=== PATIENT | male | born 1975 | race African-American/Black ===

== ENCOUNTER 2019-05-23 09:46 | Inpatient (IN) | payer MEDICARE, MEDICAID ==
[~2019-05-23] VITALS: Ht 177.8 cm; Wt 182.8 kg
[2019-05-23] MEDS ORDERED: NITROGLYCERIN OINT 1GM/INCH UDPKT TD ONE (10:30)
[2019-05-23] MEDS ORDERED: FUROSEMIDE 40MG/4ML VIAL IV ONE (10:30)
[2019-05-23] MEDS ORDERED: ASPIRIN 81MG TABLET PO ONE (10:30)
[2019-05-23 11:04] LABS: CHLORIDE 106 mEq/L (98-107)
[2019-05-23 11:05] LABS: HEMATOCRIT. 43.6 % (42.0-52.0); MEAN CORPUSCULAR HEMOGLOBIN 27.1 pg (28.0-32.0); MEAN CORPUSCULAR VOLUME 84.5 fL (80.0-94.0); PLATELET 156 x1000/uL (130-400); RED BLOOD CELL COUNT 5.16 mill/uL (4.7-6.1); RED CELL DISTRIBUTION WIDTH 17.7 % (11.6-14.6)
[2019-05-23 11:06] LABS: INR 1.2; PARTIAL THROMBOPLASTIN TIME 41.8 sec (23.4-31.0); PROTHROMBIN TIME 12.7 sec (9.6-11.0)
[2019-05-23 11:18] LABS: BG BILEVEL POS AIRWAY PRESSURE 15/5; BG CARBOXYHEMOGLOBIN 1.9 % (0.5-1.5); BG DEOXYHEMOGLOBIN 0.5 % (0.0-5.0); BG FRACTION INSPIRED OXYGEN 100; BG HCO3 ACT 36.6 mmol/L (22.0-26.0); BG METHEMOGLOBIN 0.3 % (0.0-1.5); BG OXYGEN SATURATION 99.5 % (92.0-98.5); BG OXYHEMOGLOBIN 97.3 % (94.0-97.0); BG PCO2 85.2 mmHg (35.0-45.0); BG PH 7.251 (7.350-7.450); BG PO2 250.4 mmHg (75.0-100.0); BG SAMPLE SITE RIGHT RADIAL; BG TOTAL HEMOGLOBIN 14.6 g/dL (12.0-18.0); BG VENT MODE BNCPAP; BG VENT RATE 14 set
[2019-05-23 11:56] LABS: NUCLEATED RED BLOOD CELLS 1 /100 WBC; PLATELET ESTIMATE NORMAL
[2019-05-23] MEDS ORDERED: LIDOCAINE HCL 1% 20ML VIAL (Pyxis) INJ ONE (13:11)
[2019-05-23] MEDS ORDERED: IPRATROPIUM/ALBUTEROL 0.5-3(2.5)MG/3ML NEB NEB PRN (13:15)
[2019-05-23] MEDS ORDERED: ACETAMINOPHEN 325MG TABLET PO PRN (13:15)
[2019-05-23] MEDS ORDERED: GUAIFENESIN 200MG/10ML SUGAR FREE UDC PO PRN (13:15)
[2019-05-23] MEDS ORDERED: LORAZEPAM 0.5MG TABLET PO PRN (13:15)
[2019-05-23] MEDS ORDERED: HYDROCODONE/ACETAMINOPHEN 5/325MG TABLET PO PRN (13:15)
[2019-05-23] MEDS ORDERED: DOCUSATE SODIUM 100MG CAPSULE PO PRN (13:15)
[2019-05-23] MEDS ORDERED: ONDANSETRON HCL 4MG/2ML INJ IV PRN (13:15)
[2019-05-23] MEDS ORDERED: ACETAMINOPHEN 650MG SUPP PR PRN (13:15)
[2019-05-23] MEDS ORDERED: NA PHOS,M-B/NA PHOS,DI-BA ENEMA 118ML PR PRN (13:15)
[2019-05-23] MEDS ORDERED: DIPHENHYDRAMINE 50MG/ML VIAL IV PRN (13:15)
[2019-05-23] MEDS ORDERED: MAGNESIUM/ALUMINUM HYDROXIDE/SIMETHICONE 30ML UDC PO PRN (13:15)
[2019-05-23 14:49] LABS: BG BASE EXCESS 4.3 mmol/L (-2.0-2.0); BG BILEVEL POS AIRWAY PRESSURE 18/5; BG CARBOXYHEMOGLOBIN 1.6 % (0.5-1.5); BG DEOXYHEMOGLOBIN 0.4 % (0.0-5.0); BG FRACTION INSPIRED OXYGEN 100; BG HCO3 ACT 34.8 mmol/L (22.0-26.0); BG METHEMOGLOBIN 0.3 % (0.0-1.5); BG OXYGEN SATURATION 99.6 % (92.0-98.5); BG OXYHEMOGLOBIN 97.7 % (94.0-97.0); BG PCO2 83.1 mmHg (35.0-45.0); BG PO2 331.7 mmHg (75.0-100.0); BG SAMPLE SITE RIGHT RADIAL; BG TOTAL HEMOGLOBIN 14.8 g/dL (12.0-18.0); BG VENT MODE MASK - BIPAP; BG VENT RATE 20 set
[2019-05-23] MEDS ORDERED: METHYLPREDNISOLONE SOD SUCC 40 MG/ML VIAL IV NR (15:45)
[2019-05-23] MEDS ORDERED: PIPERACILLIN/TAZ 3.375G PREMIX 50 ML IV NR (15:45)
[2019-05-23 15:53] LABS: CREATINE KINASE MB FRACTION 1.4 ng/mL (0.5-3.6)
[2019-05-23] MEDS: MONTELUKAST SODIUM 10MG TABLET PO SCH (17:00)
[2019-05-23 18:19] VITALS: BP 148/88
[2019-05-23] MEDS: FUROSEMIDE 40MG/4ML VIAL IV SCH (18:47)
[2019-05-23 18:53] VITALS: BP 143/69
[2019-05-23 20:20] VITALS: BP 158/99
[2019-05-23] MEDS: METHYLPREDNISOLONE SOD SUCC 40 MG/ML VIAL IV SCH (21:44)
[2019-05-23] MEDS: FAMOTIDINE 20MG/2ML VIAL IV SCH (21:44)
[2019-05-23] MEDS: PIPERACILLIN SODIUM/TAZOBACTAM 4.5 G in DEXT 5% WATER 100 ML IV SCH (21:45)
[2019-05-23] MEDS: ENOXAPARIN 40MG/0.4ML SYR SUBCUT SCH (21:45)
[2019-05-23 22:00] VITALS: BP 174/98
[2019-05-23] MEDS ORDERED: PIPERACILLIN/TAZOBACTAM 3.375 G in DEXT 5% WATER 100 ML IV SCH (22:00)
[2019-05-23] MEDS: CLONIDINE 0.1MG TABLET PO PRN (23:15)
[2019-05-24] VITALS (27 sets, daily range): BP systolic 122–170; BP diastolic 65–115
[2019-05-24] MEDS: PIPERACILLIN SODIUM/TAZOBACTAM 4.5 G in DEXT 5% WATER 100 ML IV SCH ×4 (00:08→17:31)
[2019-05-24 06:01] LABS: HEMATOCRIT. 42.8 % (42.0-52.0); HEMOGLOBIN. 13.4 g/dL (14.0-18.0); MEAN CORPUSCULAR VOLUME 86.2 fL (80.0-94.0); MEAN PLATELET VOLUME 8.3 fl (7.4-10.4); PLATELET 167 x1000/uL (130-400); RED BLOOD CELL COUNT 4.97 mill/uL (4.7-6.1); RED CELL DISTRIBUTION WIDTH 18.1 % (11.6-14.6)
[2019-05-24 06:15] LABS: CHLORIDE 105 mEq/L (98-107)
[2019-05-24] MEDS: FUROSEMIDE 40MG/4ML VIAL IV SCH ×2 (06:23→17:23)
[2019-05-24] MEDS: METHYLPREDNISOLONE SOD SUCC 40 MG/ML VIAL IV SCH ×3 (06:23→21:07)
[2019-05-24 06:34] LABS: LDL CHOLESTEROL 130 mg/dL (5-100)
[2019-05-24 06:35] LABS: CREATINE KINASE MB FRACTION 1.2 ng/mL (0.5-3.6); HDL CHOLESTEROL 40 mg/dL (40-59); T4 FREE 1.17 ng/dL (0.76-1.46)
[2019-05-24 06:39] LABS: CREATINE KINASE 29 IU/L (39-308)
[2019-05-24] MEDS: FAMOTIDINE 20MG/2ML VIAL IV SCH ×2 (08:41→21:05)
[2019-05-24] MEDS: LORATADINE 10MG TABLET PO SCH (08:41)
[2019-05-24] MEDS: ASPIRIN 81MG TABLET PO SCH (08:41)
[2019-05-24] MEDS: ENOXAPARIN 40MG/0.4ML SYR SUBCUT SCH ×2 (08:41→21:06)
[2019-05-24 08:46] LABS: BG BASE EXCESS -0.3 mmol/L (-2.0-2.0); BG BILEVEL POS AIRWAY PRESSURE 18/5; BG CARBOXYHEMOGLOBIN 1.3 % (0.5-1.5); BG DEOXYHEMOGLOBIN 2.1 % (0.0-5.0); BG FRACTION INSPIRED OXYGEN 100; BG HCO3 ACT 31.5 mmol/L (22.0-26.0); BG METHEMOGLOBIN 0.1 % (0.0-1.5); BG OXYGEN SATURATION 97.9 % (92.0-98.5); BG OXYHEMOGLOBIN 96.5 % (94.0-97.0); BG PCO2 92.8 mmHg (35.0-45.0); BG PH 7.148 (7.350-7.450); BG SAMPLE SITE RIGHT RADIAL; BG TOTAL HEMOGLOBIN 14.2 g/dL (12.0-18.0); BG VENT MODE MASK - BIPAP; BG VENT RATE 20 set
[2019-05-24 11:16] LABS: BG BASE EXCESS 1.9 mmol/L (-2.0-2.0); BG BILEVEL POS AIRWAY PRESSURE ST=20/5; BG CARBOXYHEMOGLOBIN 0.9 % (0.5-1.5); BG DEOXYHEMOGLOBIN 2.4 % (0.0-5.0); BG FRACTION INSPIRED OXYGEN 100; BG HCO3 ACT 32.9 mmol/L (22.0-26.0); BG METHEMOGLOBIN 0.1 % (0.0-1.5); BG OXYGEN SATURATION 97.6 % (92.0-98.5); BG OXYHEMOGLOBIN 96.6 % (94.0-97.0); BG PCO2 87.8 mmHg (35.0-45.0); BG PH 7.192 (7.350-7.450); BG PO2 106.3 mmHg (75.0-100.0); BG PRESSURE SUPPORT 15; BG SAMPLE SITE RIGHT RADIAL; BG VENT MODE MASK - BIPAP; BG VENT RATE 22 set
[2019-05-24 13:18] LABS: NUCLEATED RED BLOOD CELLS 1 /100 WBC; PLATELET ESTIMATE NORMAL
[2019-05-24] MEDS: IPRATROPIUM/ALBUTEROL 0.5-3(2.5)MG/3ML NEB NEB SCH ×2 (15:37→20:21)
[2019-05-24 16:52] LABS: BG BASE EXCESS 3.5 mmol/L (-2.0-2.0); BG BILEVEL POS AIRWAY PRESSURE ST=20/5; BG CARBOXYHEMOGLOBIN 1.1 % (0.5-1.5); BG DEOXYHEMOGLOBIN 2.9 % (0.0-5.0); BG FRACTION INSPIRED OXYGEN 100; BG HCO3 ACT 33.8 mmol/L (22.0-26.0); BG METHEMOGLOBIN 0.2 % (0.0-1.5); BG OXYGEN SATURATION 97.1 % (92.0-98.5); BG OXYHEMOGLOBIN 95.8 % (94.0-97.0); BG PCO2 83.3 mmHg (35.0-45.0); BG PH 7.226 (7.350-7.450); BG PRESSURE SUPPORT 15; BG SAMPLE SITE RIGHT RADIAL; BG TOTAL HEMOGLOBIN 13.6 g/dL (12.0-18.0); BG VENT MODE MASK - BIPAP; BG VENT RATE 22 set
[2019-05-24] MEDS: MONTELUKAST SODIUM 10MG TABLET PO SCH (17:23)
[2019-05-24] MEDS: CLONIDINE 0.1MG TABLET PO PRN (17:44)
[2019-05-24] MEDS: BUDESONIDE 0.5MG/2ML NEB HHN SCH (20:22)
[2019-05-25] VITALS (28 sets, daily range): BP systolic 133–184; BP diastolic 76–138
[2019-05-25] MEDS: IPRATROPIUM/ALBUTEROL 0.5-3(2.5)MG/3ML NEB NEB SCH ×4 (00:43→21:03)
[2019-05-25] MEDS: PIPERACILLIN SODIUM/TAZOBACTAM 4.5 G in DEXT 5% WATER 100 ML IV SCH ×4 (01:14→18:13)
[2019-05-25 04:55] LABS: HEMATOCRIT 38.5 % (42.0-52.0); HEMOGLOBIN 12.1 g/dL (14.0-18.0); MEAN CORPUSCULAR HEMOGLOBIN 26.9 pg (28.0-32.0); MEAN CORPUSCULAR VOLUME 85.5 fL (80.0-94.0); PLATELET 125 x1000/uL (130-400); RED BLOOD CELL COUNT 4.51 mill/uL (4.7-6.1); RED CELL DISTRIBUTION WIDTH 17.6 % (11.6-14.6)
[2019-05-25 05:06] LABS: CHLORIDE 106 mEq/L (98-107)
[2019-05-25] MEDS: METHYLPREDNISOLONE SOD SUCC 40 MG/ML VIAL IV SCH ×3 (05:48→21:24)
[2019-05-25] MEDS: FUROSEMIDE 40MG/4ML VIAL IV SCH ×2 (09:28→16:15)
[2019-05-25] MEDS: FAMOTIDINE 20MG/2ML VIAL IV SCH ×2 (09:28→21:25)
[2019-05-25] MEDS: LORATADINE 10MG TABLET PO SCH (09:31)
[2019-05-25] MEDS: ASPIRIN 81MG TABLET PO SCH (09:31)
[2019-05-25] MEDS: ENOXAPARIN 40MG/0.4ML SYR SUBCUT SCH ×2 (09:32→21:25)
[2019-05-25 09:34] LABS: BG BILEVEL POS AIRWAY PRESSURE 20/5; BG CARBOXYHEMOGLOBIN 1.1 % (0.5-1.5); BG DEOXYHEMOGLOBIN 0.9 % (0.0-5.0); BG FRACTION INSPIRED OXYGEN 100; BG HCO3 ACT 35.6 mmol/L (22.0-26.0); BG METHEMOGLOBIN 0.2 % (0.0-1.5); BG OXYGEN SATURATION 99.1 % (92.0-98.5); BG OXYHEMOGLOBIN 97.8 % (94.0-97.0); BG PCO2 71.3 mmHg (35.0-45.0); BG PH 7.316 (7.350-7.450); BG PO2 167.1 mmHg (75.0-100.0); BG SAMPLE SITE RIGHT RADIAL; BG TOTAL HEMOGLOBIN 13.2 g/dL (12.0-18.0); BG VENT MODE MASK - BIPAP; BG VENT RATE 22 set
[2019-05-25] MEDS: BUDESONIDE 0.5MG/2ML NEB HHN SCH ×2 (09:42→21:03)
[2019-05-25] MEDS: CLONIDINE 0.1MG TABLET PO PRN ×2 (10:14→16:15)
[2019-05-25] MEDS: AMLODIPINE 10MG TABLET PO SCH (13:46)
[2019-05-25] MEDS: HYDRALAZINE HCL 50MG TABLET PO SCH ×2 (13:46→21:25)
[2019-05-25 14:24] LABS: CLARITY URINE TURBID (CLEAR); COLOR URINE ORANGE (YELLOW); KETONES URINE NEGATIVE (NEGATIVE); LEUKOCYTE ESTERASE URINE 1+ (NEGATIVE); NITRITE URINE NEGATIVE (NEGATIVE); OCCULT BLOOD URINE 3+ (NEGATIVE); PROTEIN URINE 2+ (NEGATIVE); SPECIFIC GRAVITY URINE 1.012 (1.005-1.030)
[2019-05-25] MEDS: MONTELUKAST SODIUM 10MG TABLET PO SCH (16:16)
[2019-05-25] MEDS: HYDRALAZINE 20MG/ML VIAL IV PRN (18:19)
[2019-05-25] MEDS: CLONIDINE 0.1MG TABLET PO SCH (21:26)
[2019-05-26] VITALS (13 sets, daily range): BP systolic 22–193; BP diastolic 5–118
[2019-05-26] MEDS: PIPERACILLIN SODIUM/TAZOBACTAM 4.5 G in DEXT 5% WATER 100 ML IV SCH ×5 (00:20→23:24)
[2019-05-26] MEDS: HYDRALAZINE 20MG/ML VIAL IV PRN ×3 (00:25→23:50)
[2019-05-26] MEDS: IPRATROPIUM/ALBUTEROL 0.5-3(2.5)MG/3ML NEB NEB SCH ×4 (00:43→20:35)
[2019-05-26] MEDS: CLONIDINE 0.1MG TABLET PO PRN (02:56)
[2019-05-26] MEDS: CLONIDINE 0.1MG TABLET PO SCH ×3 (05:35→22:03)
[2019-05-26] MEDS: HYDRALAZINE HCL 50MG TABLET PO SCH ×3 (05:35→22:03)
[2019-05-26 08:03] LABS: HEMATOCRIT 37.7 % (42.0-52.0); HEMOGLOBIN 11.8 g/dL (14.0-18.0); MEAN CORPUSCULAR HEMOGLOBIN 26.7 pg (28.0-32.0); MEAN CORPUSCULAR VOLUME 85.2 fL (80.0-94.0); PLATELET 122 x1000/uL (130-400); RED BLOOD CELL COUNT 4.42 mill/uL (4.7-6.1); RED CELL DISTRIBUTION WIDTH 17.7 % (11.6-14.6)
[2019-05-26] MEDS: FAMOTIDINE 20MG/2ML VIAL IV SCH ×2 (09:00→22:03)
[2019-05-26] MEDS: LORATADINE 10MG TABLET PO SCH (09:00)
[2019-05-26] MEDS: ENOXAPARIN 40MG/0.4ML SYR SUBCUT SCH ×2 (09:00→22:04)
[2019-05-26] MEDS: ASPIRIN 81MG TABLET PO SCH (09:01)
[2019-05-26] MEDS: FUROSEMIDE 40MG/4ML VIAL IV SCH ×2 (09:03→18:03)
[2019-05-26] MEDS: AMLODIPINE 10MG TABLET PO SCH (09:04)
[2019-05-26] MEDS: BUDESONIDE 0.5MG/2ML NEB HHN SCH ×2 (09:18→20:35)
[2019-05-26] MEDS: METHYLPREDNISOLONE SOD SUCC 40 MG/ML VIAL IV SCH ×2 (10:24→22:04)
[2019-05-26] MEDS: MONTELUKAST SODIUM 10MG TABLET PO SCH (17:00)
[2019-05-27] VITALS (12 sets, daily range): BP systolic 154–174; BP diastolic 68–107
[2019-05-27] MEDS: IPRATROPIUM/ALBUTEROL 0.5-3(2.5)MG/3ML NEB NEB SCH ×4 (01:52→20:45)
[2019-05-27] MEDS: PIPERACILLIN SODIUM/TAZOBACTAM 4.5 G in DEXT 5% WATER 100 ML IV SCH ×4 (05:29→23:22)
[2019-05-27] MEDS: CLONIDINE 0.1MG TABLET PO SCH ×3 (05:30→20:50)
[2019-05-27] MEDS: HYDRALAZINE HCL 50MG TABLET PO SCH (05:31)
[2019-05-27] MEDS: FUROSEMIDE 40MG/4ML VIAL IV SCH ×2 (06:18→17:51)
[2019-05-27] MEDS: LORATADINE 10MG TABLET PO SCH (08:16)
[2019-05-27] MEDS: ASPIRIN 81MG TABLET PO SCH (08:17)
[2019-05-27] MEDS: AMLODIPINE 10MG TABLET PO SCH (08:17)
[2019-05-27] MEDS: ENOXAPARIN 40MG/0.4ML SYR SUBCUT SCH ×2 (08:19→20:49)
[2019-05-27] MEDS: BUDESONIDE 0.5MG/2ML NEB HHN SCH ×2 (08:52→20:45)
[2019-05-27] MEDS: FAMOTIDINE 20MG/2ML VIAL IV SCH ×2 (09:55→20:49)
[2019-05-27] MEDS: METHYLPREDNISOLONE SOD SUCC 40 MG/ML VIAL IV SCH ×2 (10:55→20:49)
[2019-05-27] MEDS: HYDRALAZINE HCL 100MG TABLET PO SCH ×2 (14:01→20:50)
[2019-05-27] MEDS: MONTELUKAST SODIUM 10MG TABLET PO SCH (17:52)
[2019-05-27] MEDS: HYDRALAZINE 20MG/ML VIAL IV PRN (18:02)
[2019-05-28] VITALS (9 sets, daily range): BP systolic 148–173; BP diastolic 88–106
[2019-05-28] MEDS: IPRATROPIUM/ALBUTEROL 0.5-3(2.5)MG/3ML NEB NEB SCH ×3 (00:41→15:48)
[2019-05-28] MEDS: HYDRALAZINE 20MG/ML VIAL IV PRN (04:22)
[2019-05-28] MEDS: PIPERACILLIN SODIUM/TAZOBACTAM 4.5 G in DEXT 5% WATER 100 ML IV SCH ×3 (05:19→18:38)
[2019-05-28] MEDS: CLONIDINE 0.1MG TABLET PO SCH ×3 (05:21→21:34)
[2019-05-28] MEDS: HYDRALAZINE HCL 100MG TABLET PO SCH ×3 (05:22→21:34)
[2019-05-28 06:45] LABS: BASOPHILS % 0.1 % (0.0-2.0); HEMATOCRIT. 39.7 % (42.0-52.0); HEMOGLOBIN. 12.6 g/dL (14.0-18.0); LYMPHOCYTES % 8.2 % (20.0-50.0); MEAN CORPUSCULAR HEMOGLOBIN 27.1 pg (28.0-32.0); MEAN CORPUSCULAR VOLUME 85.2 fL (80.0-94.0); MEAN PLATELET VOLUME 8.1 fl (7.4-10.4); MONOCYTES % 4.1 % (2.0-8.0); NEUTROPHILS % 87.6 % (40.0-76.0); PLATELET 145 x1000/uL (130-400); RED BLOOD CELL COUNT 4.66 mill/uL (4.7-6.1); RED CELL DISTRIBUTION WIDTH 17.8 % (11.6-14.6)
[2019-05-28] MEDS: FUROSEMIDE 40MG/4ML VIAL IV SCH ×2 (06:54→17:15)
[2019-05-28 06:56] LABS: CHLORIDE 99 mEq/L (98-107)
[2019-05-28] MEDS: ASPIRIN 81MG TABLET PO SCH (08:42)
[2019-05-28] MEDS: LORATADINE 10MG TABLET PO SCH (08:42)
[2019-05-28] MEDS: ENOXAPARIN 40MG/0.4ML SYR SUBCUT SCH ×2 (08:43→21:34)
[2019-05-28] MEDS: AMLODIPINE 10MG TABLET PO SCH (08:43)
[2019-05-28] MEDS: FAMOTIDINE 20MG/2ML VIAL IV SCH ×2 (08:44→21:34)
[2019-05-28] MEDS: BUDESONIDE 0.5MG/2ML NEB HHN SCH (09:40)
[2019-05-28] MEDS: METHYLPREDNISOLONE SOD SUCC 40 MG/ML VIAL IV SCH ×2 (10:43→21:34)
[2019-05-28] MEDS: MONTELUKAST SODIUM 10MG TABLET PO SCH (17:00)
[2019-05-29] VITALS (7 sets, daily range): BP systolic 133–197; BP diastolic 75–108
[2019-05-29] MEDS: PIPERACILLIN SODIUM/TAZOBACTAM 4.5 G in DEXT 5% WATER 100 ML IV SCH ×5 (00:28→23:54)
[2019-05-29] MEDS: HYDRALAZINE 20MG/ML VIAL IV PRN ×2 (02:54→17:45)
[2019-05-29] MEDS: CLONIDINE 0.1MG TABLET PO SCH ×3 (06:13→22:02)
[2019-05-29] MEDS: HYDRALAZINE HCL 100MG TABLET PO SCH ×3 (06:13→22:01)
[2019-05-29] MEDS: FUROSEMIDE 40MG/4ML VIAL IV SCH ×2 (06:15→17:44)
[2019-05-29 07:41] LABS: HEMOGLOBIN 12.4 g/dL (14.0-18.0); MEAN CORPUSCULAR VOLUME 84.6 fL (80.0-94.0); PLATELET 144 x1000/uL (130-400); RED CELL DISTRIBUTION WIDTH 17.9 % (11.6-14.6)
[2019-05-29 07:44] LABS: CHLORIDE 98 mEq/L (98-107)
[2019-05-29] MEDS: AMLODIPINE 10MG TABLET PO SCH (08:37)
[2019-05-29] MEDS: ASPIRIN 81MG TABLET PO SCH (08:37)
[2019-05-29] MEDS: FAMOTIDINE 20MG/2ML VIAL IV SCH ×2 (08:37→22:01)
[2019-05-29] MEDS: LORATADINE 10MG TABLET PO SCH (08:37)
[2019-05-29] MEDS: ENOXAPARIN 40MG/0.4ML SYR SUBCUT SCH ×2 (08:38→22:02)
[2019-05-29] MEDS: IPRATROPIUM/ALBUTEROL 0.5-3(2.5)MG/3ML NEB NEB SCH ×3 (09:11→21:33)
[2019-05-29] MEDS: BUDESONIDE 0.5MG/2ML NEB HHN SCH ×2 (09:11→21:33)
[2019-05-29] MEDS ORDERED: LIDOCAINE HCL/PF 1% 2ML VIAL ONE (09:19)
[2019-05-29] MEDS: METHYLPREDNISOLONE SOD SUCC 40 MG/ML VIAL IV SCH ×2 (10:50→22:07)
[2019-05-29 15:21] LABS: BG BASE EXCESS 13.6 mmol/L (-2.0-2.0); BG BILEVEL POS AIRWAY PRESSURE 22/5; BG CARBOXYHEMOGLOBIN 0.9 % (0.5-1.5); BG DEOXYHEMOGLOBIN 1.9 % (0.0-5.0); BG FRACTION INSPIRED OXYGEN 50; BG HCO3 ACT 39.7 mmol/L (22.0-26.0); BG METHEMOGLOBIN 0.2 % (0.0-1.5); BG OXYGEN SATURATION 98.1 % (92.0-98.5); BG PCO2 55.8 mmHg (35.0-45.0); BG PO2 107.4 mmHg (75.0-100.0); BG SAMPLE SITE RIGHT RADIAL; BG TOTAL HEMOGLOBIN 13.8 g/dL (12.0-18.0); BG VENT MODE MASK - BIPAP; BG VENT RATE 20 set
[2019-05-29] MEDS: MONTELUKAST SODIUM 10MG TABLET PO SCH (17:45)
[2019-05-30] VITALS (7 sets, daily range): BP systolic 130–164; BP diastolic 87–110
[2019-05-30] MEDS: IPRATROPIUM/ALBUTEROL 0.5-3(2.5)MG/3ML NEB NEB SCH ×4 (00:35→20:49)
[2019-05-30] MEDS: HYDRALAZINE 20MG/ML VIAL IV PRN (04:35)
[2019-05-30] MEDS: PIPERACILLIN SODIUM/TAZOBACTAM 4.5 G in DEXT 5% WATER 100 ML IV SCH ×3 (06:03→17:49)
[2019-05-30] MEDS: HYDRALAZINE HCL 100MG TABLET PO SCH ×3 (06:04→22:30)
[2019-05-30] MEDS: CLONIDINE 0.1MG TABLET PO SCH ×3 (06:04→22:31)
[2019-05-30] MEDS: FUROSEMIDE 40MG/4ML VIAL IV SCH ×2 (06:15→17:49)
[2019-05-30] MEDS: BUDESONIDE 0.5MG/2ML NEB HHN SCH ×2 (08:12→20:49)
[2019-05-30] MEDS: ASPIRIN 81MG TABLET PO SCH (08:44)
[2019-05-30] MEDS: AMLODIPINE 10MG TABLET PO SCH (08:44)
[2019-05-30] MEDS: FAMOTIDINE 20MG/2ML VIAL IV SCH ×2 (08:44→22:29)
[2019-05-30] MEDS: LORATADINE 10MG TABLET PO SCH (08:44)
[2019-05-30] MEDS: ENOXAPARIN 40MG/0.4ML SYR SUBCUT SCH ×2 (08:45→22:30)
[2019-05-30 10:26] LABS: HEMATOCRIT 39.5 % (42.0-52.0); HEMOGLOBIN 12.6 g/dL (14.0-18.0); MEAN CORPUSCULAR VOLUME 84.3 fL (80.0-94.0); PLATELET 160 x1000/uL (130-400); RED BLOOD CELL COUNT 4.68 mill/uL (4.7-6.1); RED CELL DISTRIBUTION WIDTH 17.4 % (11.6-14.6)
[2019-05-30 10:31] LABS: CHLORIDE 95 mEq/L (98-107)
[2019-05-30] MEDS: METHYLPREDNISOLONE SOD SUCC 40 MG/ML VIAL IV SCH ×2 (10:42→22:30)
[2019-05-30] MEDS ORDERED: POTASSIUM CHLORIDE 20MEQ TABLET SR PO NR (13:30)
[2019-05-30] MEDS: MONTELUKAST SODIUM 10MG TABLET PO SCH (17:49)
[2019-05-31] VITALS (10 sets, daily range): BP systolic 4–179; BP diastolic 98–123
[2019-05-31] MEDS: IPRATROPIUM/ALBUTEROL 0.5-3(2.5)MG/3ML NEB NEB SCH ×4 (01:15→20:40)
[2019-05-31] MEDS: CLONIDINE 0.1MG TABLET PO SCH ×4 (02:00→21:14)
[2019-05-31] MEDS: HYDRALAZINE 20MG/ML VIAL IV PRN (03:56)
[2019-05-31 07:30] LABS: CHLORIDE 97 mEq/L (98-107)
[2019-05-31] MEDS: BUDESONIDE 0.5MG/2ML NEB HHN SCH ×2 (07:37→20:41)
[2019-05-31] MEDS: FUROSEMIDE 40MG/4ML VIAL IV SCH ×2 (08:34→18:02)
[2019-05-31] MEDS: ENOXAPARIN 40MG/0.4ML SYR SUBCUT SCH ×2 (08:34→21:18)
[2019-05-31] MEDS: FAMOTIDINE 20MG/2ML VIAL IV SCH ×2 (08:34→21:15)
[2019-05-31] MEDS: AMLODIPINE 10MG TABLET PO SCH (08:35)
[2019-05-31] MEDS: ASPIRIN 81MG TABLET PO SCH (08:35)
[2019-05-31] MEDS: LORATADINE 10MG TABLET PO SCH (08:35)
[2019-05-31] MEDS: HYDRALAZINE HCL 100MG TABLET PO SCH ×3 (08:35→21:14)
[2019-05-31] MEDS: METHYLPREDNISOLONE SOD SUCC 40 MG/ML VIAL IV SCH (10:23)
[2019-05-31] MEDS: MONTELUKAST SODIUM 10MG TABLET PO SCH (18:02)
[2019-06-01] VITALS (10 sets, daily range): BP systolic 128–156; BP diastolic 68–106
[2019-06-01] MEDS: IPRATROPIUM/ALBUTEROL 0.5-3(2.5)MG/3ML NEB NEB SCH ×4 (01:04→20:41)
[2019-06-01] MEDS: CLONIDINE 0.1MG TABLET PO SCH ×4 (02:10→21:49)
[2019-06-01] MEDS: FUROSEMIDE 40MG/4ML VIAL IV SCH ×2 (06:25→17:52)
[2019-06-01] MEDS: HYDRALAZINE HCL 100MG TABLET PO SCH ×3 (06:25→21:49)
[2019-06-01] MEDS: BUDESONIDE 0.5MG/2ML NEB HHN SCH ×2 (07:41→20:41)
[2019-06-01] MEDS: FAMOTIDINE 20MG/2ML VIAL IV SCH ×2 (09:03→21:50)
[2019-06-01] MEDS: LORATADINE 10MG TABLET PO SCH (09:03)
[2019-06-01] MEDS: ASPIRIN 81MG TABLET PO SCH (09:03)
[2019-06-01] MEDS: PREDNISONE 20MG TABLET PO SCH (09:04)
[2019-06-01] MEDS: ENOXAPARIN 40MG/0.4ML SYR SUBCUT SCH ×2 (09:04→21:51)
[2019-06-01] MEDS: AMLODIPINE 10MG TABLET PO SCH (09:13)
[2019-06-01] MEDS: MONTELUKAST SODIUM 10MG TABLET PO SCH (17:52)
[2019-06-02] MEDS: IPRATROPIUM/ALBUTEROL 0.5-3(2.5)MG/3ML NEB NEB SCH ×4 (00:28→20:53)
[2019-06-02] MEDS: CLONIDINE 0.1MG TABLET PO SCH ×4 (03:23→17:57)
[2019-06-02 03:52] VITALS: BP 127/85
[2019-06-02] MEDS: FUROSEMIDE 40MG/4ML VIAL IV SCH ×2 (06:29→17:00)
[2019-06-02] MEDS: HYDRALAZINE HCL 100MG TABLET PO SCH ×3 (06:32→21:38)
[2019-06-02 08:00] VITALS: BP 142/97
[2019-06-02] MEDS: BUDESONIDE 0.5MG/2ML NEB HHN SCH ×2 (09:04→20:53)
[2019-06-02] MEDS: LORATADINE 10MG TABLET PO SCH (09:19)
[2019-06-02] MEDS: ENOXAPARIN 40MG/0.4ML SYR SUBCUT SCH ×2 (09:19→21:37)
[2019-06-02] MEDS: PREDNISONE 20MG TABLET PO SCH (09:19)
[2019-06-02] MEDS: ASPIRIN 81MG TABLET PO SCH (09:20)
[2019-06-02] MEDS: AMLODIPINE 10MG TABLET PO SCH (09:20)
[2019-06-02] MEDS: FAMOTIDINE 20MG/2ML VIAL IV SCH ×2 (09:20→21:37)
[2019-06-02 12:00] VITALS: BP 131/82
[2019-06-02 16:00] VITALS: BP 160/93
[2019-06-02] MEDS: MONTELUKAST SODIUM 10MG TABLET PO SCH (17:01)
[2019-06-02 20:45] VITALS: BP 134/78
[2019-06-02] MEDS: CARVEDILOL 3.125 MG TABLET PO SCH (21:38)
[2019-06-03 00:49] VITALS: BP 114/77
[2019-06-03] MEDS: IPRATROPIUM/ALBUTEROL 0.5-3(2.5)MG/3ML NEB NEB SCH ×4 (01:50→21:07)
[2019-06-03] MEDS: CLONIDINE 0.1MG TABLET PO SCH ×4 (02:21→20:37)
[2019-06-03 04:00] VITALS: BP 138/95
[2019-06-03] MEDS: FUROSEMIDE 40MG/4ML VIAL IV SCH ×2 (06:25→16:27)
[2019-06-03] MEDS: HYDRALAZINE HCL 100MG TABLET PO SCH ×3 (06:25→22:29)
[2019-06-03 06:57] LABS: HEMATOCRIT 40.6 % (42.0-52.0); MEAN CORPUSCULAR HEMOGLOBIN 26.9 pg (28.0-32.0); PLATELET 182 x1000/uL (130-400); RED BLOOD CELL COUNT 4.83 mill/uL (4.7-6.1); RED CELL DISTRIBUTION WIDTH 17.9 % (11.6-14.6)
[2019-06-03 07:16] LABS: CHLORIDE 98 mEq/L (98-107)
[2019-06-03] MEDS: LORATADINE 10MG TABLET PO SCH (08:53)
[2019-06-03] MEDS: CARVEDILOL 3.125 MG TABLET PO SCH ×2 (08:53→20:38)
[2019-06-03] MEDS: BUDESONIDE 0.5MG/2ML NEB HHN SCH ×2 (08:54→21:07)
[2019-06-03] MEDS: FAMOTIDINE 20MG/2ML VIAL IV SCH ×2 (08:54→20:37)
[2019-06-03] MEDS: PREDNISONE 20MG TABLET PO SCH (08:54)
[2019-06-03] MEDS: ASPIRIN 81MG TABLET PO SCH (08:54)
[2019-06-03] MEDS: AMLODIPINE 10MG TABLET PO SCH (08:54)
[2019-06-03] MEDS: ENOXAPARIN 40MG/0.4ML SYR SUBCUT SCH ×2 (09:00→20:38)
[2019-06-03] MEDS ORDERED: POTASSIUM CHLORIDE 20MEQ TABLET SR PO SCH (10:00)
[2019-06-03 12:00] VITALS: BP 132/90
[2019-06-03 16:00] VITALS: BP 130/95
[2019-06-03] MEDS: MONTELUKAST SODIUM 10MG TABLET PO SCH (16:27)
[2019-06-03] MEDS: MICONAZOLE NITRATE 2% OINT 71GM TOP SCH ×2 (16:35→20:38)
[2019-06-03 20:00] VITALS: BP 140/89
[2019-06-04] VITALS: BP 146/66
[2019-06-04] MEDS: IPRATROPIUM/ALBUTEROL 0.5-3(2.5)MG/3ML NEB NEB SCH ×4 (01:24→20:14)
[2019-06-04] MEDS: CLONIDINE 0.1MG TABLET PO SCH ×4 (01:48→22:09)
[2019-06-04 04:00] VITALS: BP 130/82
[2019-06-04] MEDS: FUROSEMIDE 40MG/4ML VIAL IV SCH ×2 (06:31→17:04)
[2019-06-04] MEDS: HYDRALAZINE HCL 100MG TABLET PO SCH ×3 (06:31→21:55)
[2019-06-04 08:01] VITALS: BP 151/102
[2019-06-04] MEDS: BUDESONIDE 0.5MG/2ML NEB HHN SCH ×2 (08:06→20:14)
[2019-06-04] MEDS: FAMOTIDINE 20MG/2ML VIAL IV SCH ×2 (08:45→21:55)
[2019-06-04] MEDS: PREDNISONE 20MG TABLET PO SCH (08:45)
[2019-06-04] MEDS: ENOXAPARIN 40MG/0.4ML SYR SUBCUT SCH ×2 (08:45→21:55)
[2019-06-04] MEDS: CARVEDILOL 3.125 MG TABLET PO SCH ×2 (08:46→21:54)
[2019-06-04] MEDS: ASPIRIN 81MG TABLET PO SCH (08:46)
[2019-06-04] MEDS: LORATADINE 10MG TABLET PO SCH (08:46)
[2019-06-04] MEDS: POTASSIUM CHLORIDE 20MEQ TABLET SR PO SCH (08:46)
[2019-06-04] MEDS: AMLODIPINE 10MG TABLET PO SCH (08:47)
[2019-06-04] MEDS: MICONAZOLE NITRATE 2% OINT 71GM TOP SCH ×2 (08:48→22:11)
[2019-06-04 12:11] VITALS: BP 115/78
[2019-06-04 15:31] VITALS: BP 140/82
[2019-06-04] MEDS: MONTELUKAST SODIUM 10MG TABLET PO SCH (17:04)
[2019-06-04 20:00] VITALS: BP 137/81
[2019-06-05] VITALS: BP 127/76
[2019-06-05] MEDS: IPRATROPIUM/ALBUTEROL 0.5-3(2.5)MG/3ML NEB NEB SCH ×4 (01:56→21:05)
[2019-06-05] MEDS: CLONIDINE 0.1MG TABLET PO SCH ×4 (02:06→20:00)
[2019-06-05 04:00] VITALS: BP 133/88
[2019-06-05] MEDS: HYDRALAZINE HCL 100MG TABLET PO SCH ×3 (06:52→22:03)
[2019-06-05] MEDS: FUROSEMIDE 40MG/4ML VIAL IV SCH ×2 (06:52→17:58)
[2019-06-05 08:32] VITALS: BP 137/86
[2019-06-05] MEDS: ENOXAPARIN 40MG/0.4ML SYR SUBCUT SCH ×2 (09:00→20:44)
[2019-06-05] MEDS: POTASSIUM CHLORIDE 20MEQ TABLET SR PO SCH (09:01)
[2019-06-05] MEDS: FAMOTIDINE 20MG/2ML VIAL IV SCH ×2 (09:01→20:32)
[2019-06-05] MEDS: LORATADINE 10MG TABLET PO SCH (09:01)
[2019-06-05] MEDS: CARVEDILOL 3.125 MG TABLET PO SCH ×2 (09:03→20:42)
[2019-06-05] MEDS: PREDNISONE 20MG TABLET PO SCH ×2 (09:03→09:08)
[2019-06-05] MEDS: AMLODIPINE 10MG TABLET PO SCH ×2 (09:06→09:08)
[2019-06-05] MEDS: ASPIRIN 81MG TABLET PO SCH (09:12)
[2019-06-05] MEDS: MICONAZOLE NITRATE 2% OINT 71GM TOP SCH ×2 (09:13→20:44)
[2019-06-05] MEDS: BUDESONIDE 0.5MG/2ML NEB HHN SCH ×2 (09:46→21:05)
[2019-06-05 11:53] VITALS: BP 121/71
[2019-06-05 15:42] VITALS: BP 150/78
[2019-06-05] MEDS: MONTELUKAST SODIUM 10MG TABLET PO SCH (17:59)
[2019-06-05 20:00] VITALS: BP 145/79
[2019-06-06] VITALS: BP 137/89
[2019-06-06 00:28] VITALS: BP 137/89
== END 2019-06-06 01:00 | disposition home or self-care (01) | DRG 291 ==
LOC: ER 09:46 → 3WST 12:31 → EDBEDREQ 12:34 → EDBEDREQTM 12:34 → CANRESERV 12:44 → ENRESERV 12:44 → SUPCPDRO 12:54 → CANRESERV 13:09 → ENRESERV 13:09 → EDBEDREQSVC 15:05 → ENRESERV 15:30 → CANRESERV 15:30 → EDBEDREQSVC 15:35 → ENRESERV 15:36 → MICUSO 05-24 10:59 → 5EST 05-25 19:23 → 6WST 06-01 12:25
PROVIDERS: ADMIT Internal Medicine; ATTEND Internal Medicine
PROC: 5A09357 Assistance with Respiratory Ventilation, Less than 24 Consecutive Hours, Continuous Positive Airway Pressure (ICD-10-PCS; principal; 2019-05-23)
PROC: 05H533Z Insertion of Infusion Device into Right Subclavian Vein, Percutaneous Approach (ICD-10-PCS; 2019-05-23)
PROC: B546ZZA Ultrasonography of Right Subclavian Vein, Guidance (ICD-10-PCS; 2019-05-23)
PROC: 5A09357 Assistance with Respiratory Ventilation, Less than 24 Consecutive Hours, Continuous Positive Airway Pressure (ICD-10-PCS; 2019-05-24)
PROC: 5A09357 Assistance with Respiratory Ventilation, Less than 24 Consecutive Hours, Continuous Positive Airway Pressure (ICD-10-PCS; 2019-05-25)
PROC: 5A09357 Assistance with Respiratory Ventilation, Less than 24 Consecutive Hours, Continuous Positive Airway Pressure (ICD-10-PCS; 2019-05-26)
PROC: 5A09357 Assistance with Respiratory Ventilation, Less than 24 Consecutive Hours, Continuous Positive Airway Pressure (ICD-10-PCS; 2019-05-27)
PROC: 5A09357 Assistance with Respiratory Ventilation, Less than 24 Consecutive Hours, Continuous Positive Airway Pressure (ICD-10-PCS; 2019-05-28)
PROC: 5A09357 Assistance with Respiratory Ventilation, Less than 24 Consecutive Hours, Continuous Positive Airway Pressure (ICD-10-PCS; 2019-05-29)
PROC: 5A09357 Assistance with Respiratory Ventilation, Less than 24 Consecutive Hours, Continuous Positive Airway Pressure (ICD-10-PCS; 2019-05-30)
PROC: 5A09357 Assistance with Respiratory Ventilation, Less than 24 Consecutive Hours, Continuous Positive Airway Pressure (ICD-10-PCS; 2019-05-31)
PROC: 5A09357 Assistance with Respiratory Ventilation, Less than 24 Consecutive Hours, Continuous Positive Airway Pressure (ICD-10-PCS; 2019-06-01)
PROC: 5A09357 Assistance with Respiratory Ventilation, Less than 24 Consecutive Hours, Continuous Positive Airway Pressure (ICD-10-PCS; 2019-06-02)
PROC: 5A09357 Assistance with Respiratory Ventilation, Less than 24 Consecutive Hours, Continuous Positive Airway Pressure (ICD-10-PCS; 2019-06-03)
PROC: 5A09357 Assistance with Respiratory Ventilation, Less than 24 Consecutive Hours, Continuous Positive Airway Pressure (ICD-10-PCS; 2019-06-04)
PROC: 5A09357 Assistance with Respiratory Ventilation, Less than 24 Consecutive Hours, Continuous Positive Airway Pressure (ICD-10-PCS; 2019-06-05)
DX: I13.0 Hypertensive heart and chronic kidney disease with heart failure and stage 1 through stage 4 chronic kidney disease, or unspecified chronic kidney disease (principal); J96.02 Acute respiratory failure with hypercapnia; I50.43 Acute on chronic combined systolic (congestive) and diastolic (congestive) heart failure; J96.01 Acute respiratory failure with hypoxia; J18.9 Pneumonia, unspecified organism; J45.901 Unspecified asthma with (acute) exacerbation; D68.59 Other primary thrombophilia; E87.2 Acidosis; E66.2 Morbid (severe) obesity with alveolar hypoventilation; Z68.43 Body mass index [BMI] 50.0-59.9, adult; Z99.81 Dependence on supplemental oxygen; E87.6 Hypokalemia; I48.91 Unspecified atrial fibrillation; N18.9 Chronic kidney disease, unspecified; Z93.1 Gastrostomy status; J45.909 Unspecified asthma, uncomplicated; R73.9 Hyperglycemia, unspecified; E88.09 Other disorders of plasma-protein metabolism, not elsewhere classified
CPT/HCPCS: 36415; 36600; 71045; 76604; 76937; 80048; 80061; 81003; 82375; 82550; 82553; 82805; 83036; 83880; 84439; 84443; 84481; 84484; 85027; 93005; 93306; 93970; 94640; 94660; 97163; 97530; 99291; A6261; C1725; J0360; J1650; J1940; J2543; J2920; J3490; J7040; J7060; J7512; J7620; J7626; A4315

== ENCOUNTER 2020-04-11 02:31 | Inpatient (IN) | payer OTHER ==
[~2020-04-11] VITALS: Ht 177.8 cm; Wt 148.8 kg
[2020-04-11] MEDS ORDERED: MORPHINE SULFATE 4 MG/ML CPJ (NOT FOR IM USE) IV STA (02:47)
[2020-04-11] MEDS ORDERED: ONDANSETRON HCL 4MG/2ML INJ IV STA (02:47)
[2020-04-11] MEDS ORDERED: LORAZEPAM 2MG/ML CPJ IV ONE (03:00)
[2020-04-11] MEDS ORDERED: ASPIRIN 81MG TABLET PO ONE (03:00)
[2020-04-11] MEDS ORDERED: FUROSEMIDE 40MG/4ML VIAL IV ONE (03:00)
[2020-04-11 03:36] LABS: BG BASE EXCESS 1.2 mmol/L (-2.0-2.0); BG CARBOXYHEMOGLOBIN 0.9 % (0.5-1.5); BG DEOXYHEMOGLOBIN 4.3 % (0.0-5.0); BG FRACTION INSPIRED OXYGEN 44; BG HCO3 ACT 25.3 mmol/L (22.0-26.0); BG METHEMOGLOBIN 0.3 % (0.0-1.5); BG OXYGEN SATURATION 95.6 % (92.0-98.5); BG OXYHEMOGLOBIN 94.5 % (94.0-97.0); BG PCO2 38.2 mmHg (35.0-45.0); BG PH 7.439 (7.350-7.450); BG PO2 77.1 mmHg (75.0-100.0); BG SAMPLE SITE RIGHT RADIAL; BG TOTAL HEMOGLOBIN 12.9 g/dL (12.0-18.0); BG VENT MODE NASAL CANNULA
[2020-04-11 03:58] LABS: BASOPHILS % 0.6 % (0.0-2.0); EOSINOPHILS % 0.7 % (0.0-5.0); HEMATOCRIT. 41.6 % (42.0-52.0); HEMOGLOBIN. 13.4 g/dL (14.0-18.0); LYMPHOCYTES % 7.2 % (20.0-50.0); MEAN CORPUSCULAR HEMOGLOBIN 26.5 pg (28.0-32.0); MEAN CORPUSCULAR VOLUME 82.2 fL (80.0-94.0); MEAN PLATELET VOLUME 7.7 fl (7.4-10.4); MONOCYTES % 4.9 % (2.0-8.0); NEUTROPHILS % 86.6 % (40.0-76.0); PLATELET 180 x1000/uL (130-400); RED BLOOD CELL COUNT 5.07 mill/uL (4.7-6.1); RED CELL DISTRIBUTION WIDTH 19.4 % (11.6-14.6)
[2020-04-11 04:05] LABS: CHLORIDE 106 mEq/L (98-107)
[2020-04-11 04:10] LABS: INR 1.2; PROTHROMBIN TIME 12.5 sec (9.6-11.0)
[2020-04-11] MEDS ORDERED: DOCUSATE SODIUM 100MG CAPSULE PO PRN (07:00)
[2020-04-11] MEDS ORDERED: GUAIFENESIN 200MG/10ML SUGAR FREE UDC PO PRN (07:00)
[2020-04-11] MEDS ORDERED: ALBUTEROL 6.7GM HFA INHALER ORI PRN (07:00)
[2020-04-11] MEDS ORDERED: METOLAZONE 10MG TABLET PO SCH (07:00)
[2020-04-11] MEDS ORDERED: ACETAMINOPHEN 325MG TABLET PO PRN ×2 (07:00)
[2020-04-11] MEDS ORDERED: ONDANSETRON HCL 4MG/2ML INJ IV PRN (07:00)
[2020-04-11] MEDS ORDERED: MAGNESIUM/ALUMINUM HYDROXIDE/SIMETHICONE 30ML UDC PO PRN (07:00)
[2020-04-11] MEDS ORDERED: NITROGLYCERIN 0.4MG TABLET SL SL PRN (07:00)
[2020-04-11] MEDS ORDERED: POTASSIUM CHLORIDE 20MEQ TABLET SR PO SCH (07:00)
[2020-04-11 07:12] LABS: ETHANOL BLOOD < 10 mg/dL
[2020-04-11 07:14] LABS: TOTAL IRON BINDING CAPACITY 245 ug/dL (250-450)
[2020-04-11 07:15] LABS: LDL CHOLESTEROL 117 mg/dL (5-100)
[2020-04-11 07:17] LABS: HDL CHOLESTEROL 44 mg/dL (40-59); T4 FREE 1.43 ng/dL (0.76-1.46)
[2020-04-11 07:30] LABS: FOLIC ACID (FOLATE) SERUM 14.8 ng/mL (>5.38)
[2020-04-11] MEDS ORDERED: AZITHROMYCIN 500 MG in DEXT 5% WATER 250 ML IV SCH (09:30)
[2020-04-11] MEDS ORDERED: ENOXAPARIN 40MG/0.4ML SYR SUBCUT SCH (10:00)
[2020-04-11] MEDS: FUROSEMIDE 40MG/4ML VIAL IVP SCH ×2 (10:02→22:54)
[2020-04-11] MEDS: ZINC SULFATE 220 MG ( 50 ) CAPSULE PO SCH (10:04)
[2020-04-11] MEDS: SPIRONOLACTONE 25MG TABLET PO SCH ×2 (10:04→22:54)
[2020-04-11] MEDS: ASPIRIN 325MG EC TABLET PO SCH (10:04)
[2020-04-11] MEDS: FAMOTIDINE 20MG TABLET PO SCH ×2 (10:05→22:54)
[2020-04-11] MEDS: ASCORBIC ACID 500 MG TABLET PO SCH ×2 (10:05→22:53)
[2020-04-11] MEDS: GUAIFENESIN/DM 600MG/30MG ER TAB 12HR PO SCH ×2 (10:05→22:53)
[2020-04-11 12:19] LABS: CLARITY URINE CLEAR (CLEAR); COLOR URINE YELLOW (YELLOW); KETONES URINE NEGATIVE (NEGATIVE); LEUKOCYTE ESTERASE URINE TRACE (NEGATIVE); NITRITE URINE NEGATIVE (NEGATIVE); OCCULT BLOOD URINE NEGATIVE (NEGATIVE); PH URINE 6.5 (4.5-8.0); PROTEIN URINE 4+ (NEGATIVE); SPECIFIC GRAVITY URINE 1.015 (1.005-1.030)
[2020-04-11 12:31] LABS: BG BASE EXCESS 2.3 mmol/L (-2.0-2.0); BG CARBOXYHEMOGLOBIN 1.9 % (0.5-1.5); BG DEOXYHEMOGLOBIN 1.6 % (0.0-5.0); BG FRACTION INSPIRED OXYGEN 44; BG HCO3 ACT 31.6 mmol/L (22.0-26.0); BG METHEMOGLOBIN 0.1 % (0.0-1.5); BG OXYGEN SATURATION 98.4 % (92.0-98.5); BG OXYHEMOGLOBIN 96.4 % (94.0-97.0); BG PH 7.243 (7.350-7.450); BG PO2 134.2 mmHg (75.0-100.0); BG SAMPLE SITE RIGHT RADIAL; BG TOTAL HEMOGLOBIN 12.7 g/dL (12.0-18.0); BG VENT MODE NASAL CANNULA
[2020-04-11] MEDS: DILTIAZEM HCL 60MG TABLET PO SCH ×2 (12:54→18:00)
[2020-04-11 13:14] LABS: *AMPHETAMINES SCREEN URINE NEGATIVE (NEGATIVE); *BARBITURATES SCREEN URINE NEGATIVE (NEGATIVE)
[2020-04-11 13:16] LABS: *BENZODIAZEPINES SCREEN URINE NEGATIVE (NEGATIVE); *COCAINE SCREEN URINE NEGATIVE (NEGATIVE); CANNABINOID URINE SCREEN NEGATIVE (NEGATIVE); METHADONE URINE SCREEN NEGATIVE (NEGATIVE); OPIATES URINE SCREEN PRESUMTIVE POSITIVE (NEGATIVE); PHENCYCLIDINE URINE SCREEN NEGATIVE (NEGATIVE)
[2020-04-11] MEDS: METHYLPREDNISOLONE SOD SUCC 40 MG/ML VIAL IV SCH ×2 (13:30→22:54)
[2020-04-11 14:30] LABS: BG BASE EXCESS 1.4 mmol/L (-2.0-2.0); BG BILEVEL POS AIRWAY PRESSURE 18/5; BG DEOXYHEMOGLOBIN 1.7 % (0.0-5.0); BG FRACTION INSPIRED OXYGEN 50; BG HCO3 ACT 30.7 mmol/L (22.0-26.0); BG METHEMOGLOBIN 0.1 % (0.0-1.5); BG OXYGEN SATURATION 98.3 % (92.0-98.5); BG OXYHEMOGLOBIN 96.2 % (94.0-97.0); BG PCO2 73.9 mmHg (35.0-45.0); BG PH 7.237 (7.350-7.450); BG SAMPLE SITE RIGHT RADIAL; BG TOTAL HEMOGLOBIN 12.9 g/dL (12.0-18.0); BG VENT MODE MASK - BIPAP; BG VENT RATE 20 set
[2020-04-11] MEDS: ENOXAPARIN 150MG/ML SYR SUBCUT SCH (17:58)
[2020-04-11 18:40] LABS: BG BILEVEL POS AIRWAY PRESSURE 20/5; BG CARBOXYHEMOGLOBIN 2.3 % (0.5-1.5); BG DEOXYHEMOGLOBIN 2.3 % (0.0-5.0); BG FRACTION INSPIRED OXYGEN 50; BG HCO3 ACT 31.6 mmol/L (22.0-26.0); BG METHEMOGLOBIN 0.1 % (0.0-1.5); BG OXYGEN SATURATION 97.6 % (92.0-98.5); BG OXYHEMOGLOBIN 95.3 % (94.0-97.0); BG PCO2 84.5 mmHg (35.0-45.0); BG PH 7.191 (7.350-7.450); BG PO2 108.8 mmHg (75.0-100.0); BG SAMPLE SITE RIGHT RADIAL; BG TOTAL HEMOGLOBIN 13.3 g/dL (12.0-18.0); BG VENT MODE MASK - AEROSOL; BG VENT RATE 22 set
[2020-04-11 22:30] VITALS: BP_SYST 156; BP_SYST 172; BP_DIAS 107; BP_DIAS 115
[2020-04-11 23:00] VITALS: BP 153/114
[2020-04-12] VITALS (41 sets, daily range): BP systolic 130–183; BP diastolic 69–126
[2020-04-12] MEDS: DILTIAZEM HCL 60MG TABLET PO SCH ×5 (00:38→23:54)
[2020-04-12] MEDS: METHYLPREDNISOLONE SOD SUCC 40 MG/ML VIAL IV SCH ×3 (05:13→21:01)
[2020-04-12] MEDS: ENOXAPARIN 150MG/ML SYR SUBCUT SCH ×2 (05:13→17:25)
[2020-04-12 06:14] LABS: CHLORIDE 105 mEq/L (98-107)
[2020-04-12 06:26] LABS: PHOSPHORUS 5.8 mg/dL (2.5-4.9)
[2020-04-12 06:27] LABS: CREATINE KINASE 63 IU/L (39-308); CREATINE KINASE MB FRACTION 1.2 ng/mL (0.5-3.6)
[2020-04-12 07:27] LABS: HEMATOCRIT. 39.5 % (42.0-52.0); HEMOGLOBIN. 12.4 g/dL (14.0-18.0); MEAN CORPUSCULAR HEMOGLOBIN 26.6 pg (28.0-32.0); MEAN CORPUSCULAR VOLUME 84.4 fL (80.0-94.0); MEAN PLATELET VOLUME 8.3 fl (7.4-10.4); PLATELET 163 x1000/uL (130-400); RED BLOOD CELL COUNT 4.68 mill/uL (4.7-6.1); RED CELL DISTRIBUTION WIDTH 18.9 % (11.6-14.6)
[2020-04-12] MEDS: SPIRONOLACTONE 25MG TABLET PO SCH ×3 (09:00→21:01)
[2020-04-12] MEDS: FUROSEMIDE 40MG/4ML VIAL IVP SCH (09:27)
[2020-04-12] MEDS: ASPIRIN 325MG EC TABLET PO SCH (09:27)
[2020-04-12] MEDS: FAMOTIDINE 20MG TABLET PO SCH (09:27)
[2020-04-12] MEDS: ZINC SULFATE 220 MG ( 50 ) CAPSULE PO SCH (09:27)
[2020-04-12] MEDS: ASCORBIC ACID 500 MG TABLET PO SCH ×2 (09:28→21:01)
[2020-04-12] MEDS: GUAIFENESIN/DM 600MG/30MG ER TAB 12HR PO SCH (09:28)
[2020-04-12] MEDS: CLONIDINE 0.1MG TABLET PO PRN (09:30)
[2020-04-12 10:31] LABS: BG CARBOXYHEMOGLOBIN 1.4 % (0.5-1.5); BG DEOXYHEMOGLOBIN 3.6 % (0.0-5.0); BG FRACTION INSPIRED OXYGEN 44; BG HCO3 ACT 29.9 mmol/L (22.0-26.0); BG OXYGEN SATURATION 96.3 % (92.0-98.5); BG PCO2 76.2 mmHg (35.0-45.0); BG PH 7.211 (7.350-7.450); BG PO2 87.9 mmHg (75.0-100.0); BG SAMPLE SITE RIGHT RADIAL; BG TOTAL HEMOGLOBIN 13.2 g/dL (12.0-18.0); BG VENT MODE NASAL CANNULA
[2020-04-12 10:34] LABS: PLATELET ESTIMATE NORMAL
[2020-04-12] MEDS: AZITHROMYCIN 500 MG in DEXT 5% WATER 250 ML IV SCH (10:40)
[2020-04-12] MEDS ORDERED: LIDOCAINE HCL/PF 1% 2ML VIAL ONE ×2 (10:42→10:45)
[2020-04-12 15:09] LABS: BG BASE EXCESS 1.8 mmol/L (-2.0-2.0); BG BILEVEL POS AIRWAY PRESSURE 20/5; BG CARBOXYHEMOGLOBIN 1.1 % (0.5-1.5); BG DEOXYHEMOGLOBIN 2.2 % (0.0-5.0); BG FRACTION INSPIRED OXYGEN 50; BG HCO3 ACT 30.4 mmol/L (22.0-26.0); BG OXYGEN SATURATION 97.8 % (92.0-98.5); BG OXYHEMOGLOBIN 96.7 % (94.0-97.0); BG PH 7.262 (7.350-7.450); BG PO2 108.3 mmHg (75.0-100.0); BG SAMPLE SITE RIGHT RADIAL; BG TOTAL HEMOGLOBIN 11.9 g/dL (12.0-18.0); BG VENT MODE MASK - BIPAP; BG VENT RATE 22 set
[2020-04-12] MEDS: HYDROCODONE/ACETAMINOPHEN 5/325MG TABLET PO PRN (19:02)
[2020-04-12] MEDS: FUROSEMIDE 100MG/10ML VIAL IVP SCH (21:00)
[2020-04-12] MEDS: CARVEDILOL 3.125 MG TABLET PO SCH (21:01)
[2020-04-12] MEDS: ZOLPIDEM TARTRATE 5MG TABLET PO PRN (23:58)
[2020-04-13] VITALS (11 sets, daily range): BP systolic 134–175; BP diastolic 81–123
[2020-04-13] MEDS: DILTIAZEM HCL 60MG TABLET PO SCH ×4 (05:44→23:33)
[2020-04-13] MEDS: ENOXAPARIN 150MG/ML SYR SUBCUT SCH ×2 (05:44→18:12)
[2020-04-13 07:36] LABS: HEMATOCRIT 34.8 % (42.0-52.0); HEMOGLOBIN 11.1 g/dL (14.0-18.0); MEAN CORPUSCULAR HEMOGLOBIN 26.5 pg (28.0-32.0); MEAN CORPUSCULAR VOLUME 83.4 fL (80.0-94.0); PLATELET 154 x1000/uL (130-400); RED BLOOD CELL COUNT 4.17 mill/uL (4.7-6.1); RED CELL DISTRIBUTION WIDTH 18.6 % (11.6-14.6)
[2020-04-13] MEDS: ZINC SULFATE 220 MG ( 50 ) CAPSULE PO SCH (09:32)
[2020-04-13] MEDS: ASCORBIC ACID 500 MG TABLET PO SCH ×2 (09:34→22:19)
[2020-04-13] MEDS: HYDROCODONE/ACETAMINOPHEN 5/325MG TABLET PO PRN ×3 (09:34→23:35)
[2020-04-13] MEDS: SPIRONOLACTONE 25MG TABLET PO SCH (09:35)
[2020-04-13] MEDS: FAMOTIDINE 20MG TABLET PO SCH (09:35)
[2020-04-13] MEDS: ASPIRIN 325MG EC TABLET PO SCH (09:35)
[2020-04-13] MEDS: CARVEDILOL 3.125 MG TABLET PO SCH (09:35)
[2020-04-13] MEDS: FUROSEMIDE 100MG/10ML VIAL IVP SCH (09:36)
[2020-04-13 10:16] LABS: BG BASE EXCESS 2.6 mmol/L (-2.0-2.0); BG CARBOXYHEMOGLOBIN 0.8 % (0.5-1.5); BG DEOXYHEMOGLOBIN 5.9 % (0.0-5.0); BG FRACTION INSPIRED OXYGEN 32; BG HCO3 ACT 29.7 mmol/L (22.0-26.0); BG METHEMOGLOBIN 0.3 % (0.0-1.5); BG PCO2 58.3 mmHg (35.0-45.0); BG PH 7.325 (7.350-7.450); BG SAMPLE SITE RIGHT RADIAL; BG TOTAL HEMOGLOBIN 11.8 g/dL (12.0-18.0); BG VENT MODE NASAL CANNULA
[2020-04-13] MEDS: AZITHROMYCIN 500 MG in DEXT 5% WATER 250 ML IV SCH (12:13)
[2020-04-13] MEDS: METHYLPREDNISOLONE SOD SUCC 40 MG/ML VIAL IV SCH ×3 (14:26→21:00)
[2020-04-13] MEDS: ZOLPIDEM TARTRATE 5MG TABLET PO PRN (22:18)
[2020-04-13] MEDS: FUROSEMIDE 40MG/4ML VIAL IVP SCH (22:19)
[2020-04-13] MEDS: CARVEDILOL 6.25 MG TABLET PO SCH (22:20)
[2020-04-14] VITALS (12 sets, daily range): BP systolic 160–185; BP diastolic 97–132
[2020-04-14] MEDS: CLONIDINE 0.1MG TABLET PO PRN ×4 (02:12→22:14)
[2020-04-14 05:53] LABS: HEMATOCRIT 32.8 % (42.0-52.0); HEMOGLOBIN 10.5 g/dL (14.0-18.0); MEAN CORPUSCULAR HEMOGLOBIN 26.4 pg (28.0-32.0); MEAN CORPUSCULAR VOLUME 82.5 fL (80.0-94.0); PLATELET 160 x1000/uL (130-400); RED BLOOD CELL COUNT 3.98 mill/uL (4.7-6.1); RED CELL DISTRIBUTION WIDTH 18.3 % (11.6-14.6)
[2020-04-14] MEDS: ENOXAPARIN 150MG/ML SYR SUBCUT SCH ×2 (07:02→17:09)
[2020-04-14] MEDS: DILTIAZEM HCL 60MG TABLET PO SCH ×3 (07:03→17:11)
[2020-04-14] MEDS: FUROSEMIDE 40MG/4ML VIAL IVP SCH ×2 (09:09→20:10)
[2020-04-14] MEDS: ZINC SULFATE 220 MG ( 50 ) CAPSULE PO SCH (09:10)
[2020-04-14] MEDS: METHYLPREDNISOLONE SOD SUCC 40 MG/ML VIAL IV SCH ×2 (09:10→20:10)
[2020-04-14] MEDS: FAMOTIDINE 20MG TABLET PO SCH (09:10)
[2020-04-14] MEDS: CARVEDILOL 6.25 MG TABLET PO SCH ×2 (09:11→20:13)
[2020-04-14] MEDS: ASPIRIN 325MG EC TABLET PO SCH (09:12)
[2020-04-14] MEDS: ASCORBIC ACID 500 MG TABLET PO SCH ×2 (09:12→20:10)
[2020-04-14] MEDS: AZITHROMYCIN 500 MG TABLET PO SCH (09:15)
[2020-04-14] MEDS ORDERED: LIDOCAINE HCL 1% 20ML VIAL (Pyxis) INJ INFIL SCH (13:00)
[2020-04-14] MEDS: HYDRALAZINE HCL 50MG TABLET PO SCH ×2 (13:09→21:09)
[2020-04-14] MEDS: HYDROCODONE/ACETAMINOPHEN 5/325MG TABLET PO PRN (17:11)
[2020-04-14] MEDS: ZOLPIDEM TARTRATE 5MG TABLET PO PRN (23:42)
[2020-04-15] VITALS (12 sets, daily range): BP systolic 122–180; BP diastolic 80–123
[2020-04-15] MEDS: MINOXIDIL 2.5MG TABLET PO SCH ×2 (00:05→08:47)
[2020-04-15] MEDS: DILTIAZEM HCL 60MG TABLET PO SCH ×3 (02:32→11:13)
[2020-04-15] MEDS: ENOXAPARIN 150MG/ML SYR SUBCUT SCH (06:21)
[2020-04-15] MEDS: HYDRALAZINE HCL 50MG TABLET PO SCH ×2 (06:21→13:24)
[2020-04-15] MEDS: HYDROCODONE/ACETAMINOPHEN 5/325MG TABLET PO PRN (08:46)
[2020-04-15] MEDS: METHYLPREDNISOLONE SOD SUCC 40 MG/ML VIAL IV SCH (08:47)
[2020-04-15] MEDS: FUROSEMIDE 40MG/4ML VIAL IVP SCH (08:47)
[2020-04-15] MEDS: ZINC SULFATE 220 MG ( 50 ) CAPSULE PO SCH (08:47)
[2020-04-15] MEDS: AZITHROMYCIN 500 MG TABLET PO SCH (08:47)
[2020-04-15] MEDS: CARVEDILOL 6.25 MG TABLET PO SCH (08:47)
[2020-04-15] MEDS: FAMOTIDINE 20MG TABLET PO SCH (08:47)
[2020-04-15] MEDS: ASCORBIC ACID 500 MG TABLET PO SCH (08:48)
[2020-04-15] MEDS: ASPIRIN 325MG EC TABLET PO SCH (08:50)
[2020-04-15] MEDS: CLONIDINE 0.1MG TABLET PO PRN (10:54)
[2020-04-15] MEDS ORDERED: HYDRALAZINE HCL 10MG TABLET PO SCH (11:45)
[2020-04-15] MEDS ORDERED: HYDRALAZINE HCL 10MG TABLET PO PRN (12:00)
[2020-04-15] MEDS ORDERED: SILVER NITRATE APPLICATOR STICK TOP SCH (12:15)
[2020-04-15] MEDS ORDERED: FURO-151 PO (12:48)
[2020-04-15] MEDS ORDERED: FLUT1AER INH (12:48)
[2020-04-15] MEDS ORDERED: DILT60TA41 MT (12:48)
[2020-04-15] MEDS ORDERED: MINO2.5T2 MT (12:48)
[2020-04-15] MEDS ORDERED: COR6 MT (12:48)
[2020-04-15] MEDS ORDERED: APIX5TAB MT (12:48)
[2020-04-15] MEDS ORDERED: IPRA3AMP9 NEB (12:48)
[2020-04-15] MEDS ORDERED: MINOXIDIL 2.5MG TABLET PO SCH (13:00)
[2020-04-15] MEDS ORDERED: LIDOCAINE HCL 1% 20ML VIAL (Pyxis) INJ INFIL SCH (13:00)
[2020-04-15] MEDS ORDERED: SKIN ADHESIVE 0.7 GM EA TOP ONE (13:02)
== END 2020-04-15 17:55 | disposition home health service (06) | DRG 291 ==
LOC: ER 03:14 → MICUSO 05:22 → SUPCPDRO 06:51 → EDBEDREQSVC 09:40 → SUPCPDRO 11:25 → EDBEDREQ 12:01 → EDBEDREQSVC 12:48 → ENRESERV 20:11 → 5EST 04-12 22:54
PROVIDERS: ADMIT Internal Medicine; ATTEND Internal Medicine
PROC: 5A09557 Assistance with Respiratory Ventilation, Greater than 96 Consecutive Hours, Continuous Positive Airway Pressure (ICD-10-PCS; 2020-04-10)
PROC: 0HQKXZZ Repair Right Lower Leg Skin, External Approach (ICD-10-PCS; principal; 2020-04-14)
PROC: 0HQKXZZ Repair Right Lower Leg Skin, External Approach (ICD-10-PCS; 2020-04-15)
DX: I13.0 Hypertensive heart and chronic kidney disease with heart failure and stage 1 through stage 4 chronic kidney disease, or unspecified chronic kidney disease (principal); J96.21 Acute and chronic respiratory failure with hypoxia; I50.43 Acute on chronic combined systolic (congestive) and diastolic (congestive) heart failure; N17.0 Acute kidney failure with tubular necrosis; J96.22 Acute and chronic respiratory failure with hypercapnia; J45.901 Unspecified asthma with (acute) exacerbation; J44.1 Chronic obstructive pulmonary disease with (acute) exacerbation; I48.92 Unspecified atrial flutter; D68.59 Other primary thrombophilia; E44.0 Moderate protein-calorie malnutrition; E66.2 Morbid (severe) obesity with alveolar hypoventilation; E87.2 Acidosis; I47.1 Supraventricular tachycardia; Z68.42 Body mass index [BMI] 45.0-49.9, adult; L03.90 Cellulitis, unspecified; K80.20 Calculus of gallbladder without cholecystitis without obstruction; I89.0 Lymphedema, not elsewhere classified; Z20.828 Contact with and (suspected) exposure to other viral communicable diseases; D64.9 Anemia, unspecified; D72.810 Lymphocytopenia; E61.1 Iron deficiency; E87.6 Hypokalemia; I48.0 Paroxysmal atrial fibrillation; S81.811A Laceration without foreign body, right lower leg, initial encounter; L85.3 Xerosis cutis; N18.3 Chronic kidney disease, stage 3 (moderate); X58.XXXA Exposure to other specified factors, initial encounter; Z88.8 Allergy status to other drugs, medicaments and biological substances; Z79.01 Long term (current) use of anticoagulants; Z79.899 Other long term (current) drug therapy; Z79.84 Long term (current) use of oral hypoglycemic drugs; Z99.3 Dependence on wheelchair; Z79.51 Long term (current) use of inhaled steroids; Y93.89 Activity, other specified; Y92.89 Other specified places as the place of occurrence of the external cause; Y99.8 Other external cause status
CPT/HCPCS: 36415; 36600; 71045; 76770; 78582; 80048; 80053; 80061; 80305; 80320; 81003; 82375; 82550; 82553; 82607; 82728; 82746; 82805; 83036; 83540; 83550; 83605; 83735; 83880; 84100; 84439; 84443; 84484; 85025; 85027; 85379; 87635; 93005; 93306; 93970; 94660; 96374; 99291; J0456; J1650; J1940; J2060; J2270; J2405; J2920; J3490; J7060; G0480

== ENCOUNTER 2020-07-03 16:14 | Emergency (ER) | payer OTHER, MEDICAID ==
[~2020-07-03] VITALS: Ht 180.3 cm; Wt 227.0 kg
[~2020-07-03 16:14] MED LIST: APIX5TAB MT; COR6 MT; DILT60TA41 MT; FLUT1AER INH; FURO-151 PO; IPRA3AMP9 NEB; MINO2.5T2 MT
[2020-07-03] MEDS ORDERED: NITROGLYCERIN 0.4MG TABLET SL SL PRN (17:00)
[2020-07-03] MEDS ORDERED: ASPIRIN 81MG TABLET PO ONE (17:00)
[2020-07-03] MEDS ORDERED: FUROSEMIDE 40MG/4ML VIAL IV ONE (17:00)
[2020-07-03 18:05] LABS: BASOPHILS % 0.3 % (0.0-2.0); EOSINOPHILS % 0.4 % (0.0-5.0); HEMATOCRIT. 34.5 % (42.0-52.0); HEMOGLOBIN. 10.9 g/dL (14.0-18.0); LYMPHOCYTES % 7.8 % (20.0-50.0); MEAN CORPUSCULAR HEMOGLOBIN 26.2 pg (28.0-32.0); MEAN CORPUSCULAR VOLUME 82.6 fL (80.0-94.0); MEAN PLATELET VOLUME 8.6 fl (7.4-10.4); MONOCYTES % 3.3 % (2.0-8.0); NEUTROPHILS % 88.2 % (40.0-76.0); PLATELET 202 x1000/uL (130-400); RED BLOOD CELL COUNT 4.17 mill/uL (4.7-6.1); RED CELL DISTRIBUTION WIDTH 20.1 % (11.6-14.6)
[2020-07-03 18:14] LABS: INR 1.1; PROTHROMBIN TIME 11.4 sec (9.6-11.0)
[2020-07-03 18:52] LABS: CHLORIDE 104 mEq/L (98-107)
[2020-07-03] MEDS ORDERED: AMPICILLIN SOD/SULBACTAM NA 3 G in SODIUM CHLORIDE 0.9% 100 ML IV SCH (19:45)
[2020-07-03] MEDS ORDERED: LORAZEPAM 1MG TABLET PO ONE (22:45)
[2020-07-04 00:44] VITALS: BP 166/104
== END 2020-07-04 00:29 | disposition short-term general hospital (02) ==
LOC: ER 16:40 → CANBEDREQ 07-04 06:51
DX: I11.0 Hypertensive heart disease with heart failure (principal); I50.43 Acute on chronic combined systolic (congestive) and diastolic (congestive) heart failure; L03.116 Cellulitis of left lower limb; L03.115 Cellulitis of right lower limb; N28.9 Disorder of kidney and ureter, unspecified; J44.9 Chronic obstructive pulmonary disease, unspecified; Z91.09 Other allergy status, other than to drugs and biological substances
CPT/HCPCS: 36415; 71045; 80053; 83880; 84484; 85025; 85610; 87040; 93005; 93970; 96374; 96375; 99285; J1940; J0295; J7050; A4315